=== PATIENT | male | born 1965 | race Caucasian/White ===

== ENCOUNTER 2020-03-17 08:33 | Observation (INO) ==
[2020-03-17] MEDS ORDERED: HYDROCODONE/ACETAMOPHEN 5/325MG TAB PO STA (09:02)
--- NOTE | 2020-03-17 09:37 | XRay Report ---
XR chest 1V portable CLINICAL HISTORY: Chest pain status post trauma COMPARISON STUDY: 11/23/2019 FINDINGS: The heart is the upper limits of normal in size. There is no failure. There is no focal pul monary consolidation. There are no pleural effusions. There is no pneumothorax. Slight interstitial p rominence likely relates to technical factors.[ IMPRESSION: No active disease in the chest. ACT 112: Negative or not required by law. Electronically signed by: Charli Dailey M.D. 03/17/2020 9:36 AM
--- NOTE | 2020-03-17 09:38 | XRay Report ---
XR knee RT 1 or 2V routine CLINICAL HISTORY: Extremity trauma. COMPARISON: None. FINDINGS: Note is made of an acute oblique mildly displaced fracture of the proximal diaphysis of th e right fibula. No proximal right tibial fracture is identified. Evaluation of the right knee is subo ptimal on this examination given lack of lateral view. Patella juanpablo is suspected. IMPRESSION: 1. Acute oblique mildly displaced fracture of the proximal diaphysis of the right fibula. 2. Suboptimal evaluation of the right knee given lack of lateral projection. Suspected patella juanpablo. This finding is age indeterminate and injury to the patellar tendon cannot be excluded. ACT 112: Negative or not required by law. Electronically signed by: Brady Terrell M.D. 03/17/2020 9:37 AM
--- NOTE | 2020-03-17 09:39 | XRay Report ---
XR ankle RT 2V CLINICAL HISTORY: Right ankle pain status post trauma COMPARISON: None DISCUSSION: There is a nondisplaced longitudinal fracture through the posterior malleolus of the dist al tibia. Degenerative changes are present within the tibiotalar joint. There is a plantar calcaneal spur. There is a tiny corticated ossicle adjacent Malleolar tip. This is felt to be old. The ankle mortise appears intact on these nonstress views.. IMPRESSION: 1. Acute fracture involving the posterior malleolus. ACT 112: Negative or not required by law. Electronically signed by: Charli Dailey M.D. 03/17/2020 9:38 AM
--- NOTE | 2020-03-17 09:44 | XRay Report ---
XR tibia fibula RT 2V CLINICAL HISTORY: Extremity trauma. COMPARISON: None FINDINGS: There may be slight medial ankle mortise widening. Note is made of an acute nondisplaced f racture of the posterior distal right tibia. In addition, there is an acute oblique mildly displaced fracture of the proximal diaphysis of the right fibula. IMPRESSION: 1. Acute nondisplaced fracture of the posterior distal right tibia. Acute oblique mildly displaced fr acture of the proximal diaphysis of the right fibula. 2. Possible slight medial ankle mortise widening. Underlying ligamentous injury cannot be excluded. ACT 112: Negative or not required by law. Electronically signed by: Brady Terrell M.D. 03/17/2020 9:42 AM
[2020-03-17] MEDS ORDERED: HYDROmorphone INJ 0.5 MG/0.5 ML SYR IV STA ×2 (10:18→11:25)
[2020-03-17] MEDS ORDERED: ONDANSETRON INJ 2 MG/ML 2 ML VIAL IV STA (10:18)
[2020-03-17] MEDS ORDERED: SODIUM CHLORIDE 0.9% 1000ML 1,000 ML IV SCH ×2 (10:30→21:00)
[2020-03-17 10:32] LABS: Basophils # (auto) 0.03 K/uL (0-0.2); Basophils % (auto) 0.3 %; Eosinophils # (auto) 0.33 K/uL (0-0.5); Eosinophils % (auto) 3.8 %; Hematocrit (blood only) 49.2 % (42-52); Immature Granulocytes # (auto) 0.02 K/uL (0.00-0.02); Immature Granulocytes % (auto) 0.2 %; Lymphocytes # (auto) 1.71 K/uL (1.2-3.4); Lymphocytes % (auto) 19.7 %; Mean Corpuscular Hemoglobin 31.3 pg (25-34); Mean Corpuscular Hgb Conc 34.6 g/dL (32-36); Mean Corpuscular Volume 90.6 fL (80-100); Mean Platelet Volume 10.8 fL (7.4-10.4); Monocytes # (auto) 0.75 K/uL (0.11-0.59); Monocytes % (auto) 8.7 %; Neutrophils # (auto) 5.83 K/uL (1.4-6.5); Neutrophils % (auto) 67.3 %; Platelet Count 202 K/uL (130-400); RDW Coefficient of Variation 12.6 % (11.5-14.5); RDW Standard Deviation 41.6 fL (36.4-46.3); Red Blood Count 5.43 M/uL (4.7-6.1); White Blood Count 8.67 K/uL (4.8-10.8)
[2020-03-17 10:51] LABS: Alanine Aminotransferase 70 U/L (12-78); Albumin Level 4.5 gm/dl (3.4-5.0); Aspartate Aminotransferase 28 U/L (15-37); BUN Creatinine Ratio 18.2 (10-20); Blood Urea Nitrogen 21 mg/dl (7-18); Calcium 9.1 mg/dl (8.5-10.1); Carbon Dioxide 31 mmol/L (21-32); Chloride 107 mmol/L (98-107); Est GFR (African American) 84.6; Glucose 154 mg/dl (70-99); Potassium 4.7 mmol/L (3.5-5.1); Sodium 141 mmol/L (136-145)
[2020-03-17 10:53] LABS: Albumin Globulin Ratio 1.4 (0.9-2); Alkaline Phosphatase 70 U/L (45-117); Bilirubin,Total 0.5 mg/dl (0.2-1); Globulin 3.2 gm/dl (2.5-4.0); Total Protein 7.7 gm/dl (6.4-8.2)
[2020-03-17 11:42] LABS: Influenza A virus by PCR Negative (Neg); Influenza B virus by PCR Negative (Neg); RSV by PCR Negative (Neg); SARS CoV2 RNA(COVID-19) InHosp NEGATIVE (Negative)
--- NOTE | 2020-03-17 13:03 | Magnetic Resonance Report ---
MR knee RT wo con CLINICAL HISTORY: Right knee pain status post trauma. Possible patellar tendon rupture. COMPARISON STUDY: X-ray study dated 03/17/2020 TECHNIQUE: MRI of the right knee was performed utilizing proton density T1, and T2 weighted sequences in the axial, sagittal, and coronal planes FINDINGS: Menisci: There is a vertical tear through the posterior horn of the medial meniscus. No tears of the lateral meniscus are visualized. Ligaments: The anterior and posterior cruciate ligaments are intact. The medial and lateral collatera l ligaments are normal in appearance. Extensor mechanism: There is a complete tear of the infrapatellar tendon. The tendon is retracted wit h 2 cm the tendon margins. There is also disruption of the lateral patellar retinaculum. Articular cartilage and bone: There is chondromalacia patella. Joint effusion: None. Soft tissues: There is moderate subcutaneous anterior edema. IMPRESSION: 1. Complete tear of the infrapatellar tendon with 2 cm of tendon separation 2. Tear of the posterior horn the medial meniscus 3. Chondromalacia patella ACT 112: Negative or not required by law. Electronically signed by: Charli Dailey M.D. 03/17/2020 1:01 PM
--- NOTE | 2020-03-17 13:05 | Electrocardiogram Report ---
Test Reason : Blood Pressure : / mmHG Vent. Rate : 057 BPM Atrial Rate : 057 BPM P-R Int : 176 ms QRS Dur : 094 ms QT Int : 396 ms P-R-T Axes : 036 -11 020 degrees QTc Int : 385 ms Sinus bradycardia Cannot rule out Anterior infarct , age undetermined Abnormal ECG When compared with ECG of 23-NOV-2009 06:35, No significant change was found Confirmed by Elvin Marie ([id number]) on 03/17/2020 1:05:24 PM Referred By: REFERRED SELF Confirmed By:Elvin Marie
--- NOTE | 2020-03-17 14:25 | Emergency Department Note ---
Impression & Plan Patellar tendon rupture, Fracture of proximal end of fibula, Closed fracture of posterior malleolus ED Provider Note NAME: PANCHO LOZANO AGE: 54 SEX: M ARRIVES VIA: Walk-In INFORMANT: Patient ED PROVIDER(S): Marybeth Craig MD CHIEF COMPLAINT: Right knee pain after fall PLAN: Disposition: inpatient Condition: stable Referral: Ortho MEDICAL DECISION MAKING:This pt was evaluated and appeared to be in some discomfort. Pt initially declined "heavy" pain meds and was given po norco. XR of the R knee, R tib fib and ankle reveal a high riding patella, proximal fibular fx and post malleolar fx. Pt has a patellar tendon rupture on exam. His pain increased during his stay. IV access was obtained and lab work was drawn. Pt was medicated with IV dilaudid, zofran. Case was discussed with Dr. Ho and subsequently Dr. Goode who agreed to evaluate the pt for admission and further management. Triage Nursing notes reviewed. Prior medical records reviewed Vital Signs: reviewed and remarkable for no significant abnormalities Differential diagnosis: Fracture, subluxation, dislocation, contusion, ligamentous injury, neurovascular, compartment syndrome, rhabdomyolysis, as well as other pathologies. ER treatment provided: po norco IV dilaudid IV zofran knee immobilizer posterior/sugartong splint foot/ankle Diagnostics interpreted by me: ECG: sinus bradycardia at 57 bpm, normal ST segments, no PVC, no PAC. QTc 385 Laboratory studies: See below Imaging studies: XR ankle RT 2V CLINICAL HISTORY: Right ankle pain status post trauma COMPARISON: None DISCUSSION: There is a nondisplaced longitudinal fracture through the posterior malleolus of the distal tibia. Degenerative changes are present within the tibiotalar joint. There is a plantar calcaneal spur. There is a tiny corticated ossicle adjacent Malleolar tip. This is felt to be old. The ankle mortise appears intact on these nonstress views.. IMPRESSION: 1. Acute fracture involving the posterior malleolus. ACT 112: Negative or not required by law. Electronically signed by: Charli Dailey M.D. 03/17/2020 9:38 AM Dictated: 03/17/20935Transcribed: 03/17/20935 ADDENDUM Addendum: Although technically indeterminate, apparent patella juanpablo is probably positional or chronic. Electronically signed by: Brady Terrell M.D. 03/17/2020 9:43 AM ADDENDUM END XR knee RT 1 or 2V routine CLINICAL HISTORY: Extremity trauma. COMPARISON: None. FINDINGS: Note is made of an acute oblique mildly displaced fracture of the proximal diaphysis of the right fibula. No proximal right tibial fracture is identified. Evaluation of the right knee is suboptimal on this examination given lack of lateral view. Patella juanpablo is suspected. IMPRESSION: 1. Acute oblique mildly displaced fracture of the proximal diaphysis of the right fibula. 2. Suboptimal evaluation of the right knee given lack of lateral projection. Suspected patella juanpablo. This finding is age indeterminate and injury to the patellar tendon cannot be excluded. ACT 112: Negative or not required by law. Electronically signed by: Brady Terrell M.D. 03/17/2020 9:37 AM Dictated: 03/17/2034Transcribed: 03/17/20933 XR tibia fibula RT 2V CLINICAL HISTORY: Extremity trauma. COMPARISON: None FINDINGS: There may be slight medial ankle mortise widening. Note is made of an acute nondisplaced fracture of the posterior distal right tibia. In addition, there is an acute oblique mildly displaced fracture of the proximal diaphysis of the right fibula. IMPRESSION: 1. Acute nondisplaced fracture of the posterior distal right tibia. Acute oblique mildly displaced fracture of the proximal diaphysis of the right fibula. 2. Possible slight medial ankle mortise widening. Underlying ligamentous injury cannot be excluded. ACT 112: Negative or not required by law. Electronically signed by: Brady Terrell M.D. 03/17/2020 9:42 AM Dictated: 03/17/2039Transcribed: 03/17/2039 XR chest 1V portable CLINICAL HISTORY: Chest pain status post trauma COMPARISON STUDY: 11/23/2019 FINDINGS: The heart is the upper limits of normal in size. There is no failure. There is no focal pulmonary consolidation. There are no pleural effusions. There is no pneumothorax. Slight interstitial prominence likely relates to technical factors.[ IMPRESSION: No active disease in the chest. ACT 112: Negative or not required by law. Electronically signed by: Charli Dailey M.D. 03/17/2020 9:36 AM Dictated: 03/17/20935Transcribed: 03/17/20935 Consultation(s): Ortho HPI: 54/M arrives for evaluation of R knee pain after a fall on the ice. Pt states he was taking the garbage out when he slipped, landing on his R>L knees. His R leg went behind him, with his foot hitting his buttocks. He immediately felt pain in the knee. Pt denies CHI, neck pain, CP, SOB, abd pain. He yelled, crawled to house until his saw him. He denies recent illness and known COVID exposure. ROS: See above HPI for pertinent positives & negatives. A total of 10 systems reviewed and were otherwise negative. PAST MEDICAL HISTORY:See Below PAST SURGICAL HISTORY:See Below FAMILY HISTORY:See Below SOCIAL HISTORY:See Below HOME MEDICATIONS:See Below ALLERGIES:See Below VITALS:See Below PHYSICAL EXAMINATION: Vital signs reviewed. General: Well-appearing 54 yo male, in discomfort. HEENT: No scleral icterus, PERRLA, neck supple. Atraumatic. Cardiovascular: Regular rate and rhythm, no extra sounds. Pulmonary: Clear to auscultation bilaterally, normal work of breathing. Abdomen: Soft, obese, nontender, nondistended, positive bowel sounds. Musculoskeletal: Atraumatic, no peripheral edema. R knee with patellar tendon defect, + swelling. pain with any ROM and inability to extend leg when quads are isolated. NVI distally. No significant swelling, pain at foot/ankle. Neurologic: Patient awake alert and oriented x 3 Skin: Warm, dry, abrasions at bilateral knees. Marybeth Craig MD Past Med/Surg History Medical History Elevated cholesterol GERD (gastroesophageal reflux disease) Social History Smoking Status: Never smoker Hx Alcohol Use: Yes Alcohol type: beer Hx Substance Use: No Preferred Language: Danish Communication Ability: Effective Beliefs That Will Affect Care: None Current Living Situation: Spouse Feels Safe at Home: Yes Assistive Devices: Brace/Splint/Immobilizer, Glasses and Walker Allergies Allergies Allergy/AdvReac Type Severity Reaction Status Date / Time No Known Allergies Allergy Unknown ` Verified 03/17/20 09:37 Home Meds Home Medications Medication Instructions Recorded Confirmed rosuvastatin 10 mg tablet 10 mg PO DAILY 12/16/18 03/17/20 omeprazole 20 mg PO BID 03/17/20 03/17/20 Previous Rx's Medication Instructions Recorded ondansetron HCl [Zofran] 4 mg PO DAILY PRN #10 tab 03/19/20 oxycodone 5 - 10 mg PO Q4H PRN #30 tab 03/19/20 Results & Data (ED) Vital Signs Vital Signs - 24 hr 03/17/20 08:34 03/17/20 10:30 03/17/20 13:57 Temperature 36.0 C L Temperature Source Temporal Artery Scan Pulse Rate 74 Pulse Rate [Right Finger] 85 88 Respiratory Rate 20 18 16 Blood Pressure 154/91 H Blood Pressure [Right Arm] 144/74 H 120/83 Blood Pressure Mean 112 Blood Pressure Mean [Right Arm] 97 95 Pulse Oximetry 98 96 97 Oxygen Delivery Method Room Air Room Air Room Air Sepsis Recent Fever Within 48 Hours No Sepsis New/Unexplained Change in Mental Status No Sepsis Action Taken by Nursing No Action Required Home Medications Current Medication List: was personally reviewed by me Laboratory Data Attestation: I reviewed the patient's lab results. Result diagrams: 03/17/20 10:15 03/17/20 10:15 Lab Results 03/17/20 03/17/20 03/17/20 Range/Units 10:15 10:15 10:50 WBC 8.67 (4.8-10.8) K/uL RBC 5.43 (4.7-6.1) M/uL Hgb 17.0 (14.0-18.0) g/dL Hct 49.2 (42-52) % MCV 90.6 (80-100) fL MCH 31.3 (25-34) pg MCHC 34.6 (32-36) g/dL RDW Std Deviation 41.6 (36.4-46.3) fL RDW Coeff of Jyoti 12.6 (11.5-14.5) % Plt Count 202 (130-400) K/uL MPV 10.8 H (7.4-10.4) fL Immature Gran % (Auto) 0.2 % Neut % (Auto) 67.3 % Lymph % (Auto) 19.7 % [place] % (Auto) 8.7 % Eos % (Auto) 3.8 % Baso % (Auto) 0.3 % Neut # (Auto) 5.83 (1.4-6.5) K/uL Lymph # (Auto) 1.71 (1.2-3.4) K/uL [place] # (Auto) 0.75 H (0.11-0.59) K/uL Eos # (Auto) 0.33 (0-0.5) K/uL Baso # (Auto) 0.03 (0-0.2) K/uL Immature Gran # (Auto) 0.02 (0.00-0.02) K/uL Sodium 141 (136-145) mmol/L Potassium 4.7 (3.5-5.1) mmol/L Chloride 107 (98-107) mmol/L Carbon Dioxide 31 (21-32) mmol/L Anion Gap 3.0 (3-11) BUN 21 H (7-18) mg/dl Creatinine 1.14 (0.6-1.4) mg/dl Est Cr Clr Drug Dosing Not Reportable Est GFR ( Amer) 84.6 Est GFR (Non-Af Amer) 73.0 BUN/Creatinine Ratio 18.2 (10-20) Glucose 154 H (70-99) mg/dl Calcium 9.1 (8.5-10.1) mg/dl Total Bilirubin 0.5 (0.2-1) mg/dl AST 28 (15-37) U/L ALT 70 (12-78) U/L Alkaline Phosphatase 70 (45-117) U/L Total Protein 7.7 (6.4-8.2) gm/dl Albumin 4.5 (3.4-5.0) gm/dl Globulin 3.2 (2.5-4.0) gm/dl Albumin/Globulin Ratio 1.4 (0.9-2) Specimen Hemolysis COVID-19 Eval Order CovFluRsv at [facility] SARS-CoV-2 (PCR) (Negative) Influenza Type A (PCR) (Neg) Influenza Type B (PCR) (Neg) RSV (RT-PCR) (Neg) 03/17/20 Range/Units 10:50 WBC (4.8-10.8) K/uL RBC (4.7-6.1) M/uL Hgb (14.0-18.0) g/dL Hct (42-52) % MCV (80-100) fL MCH (25-34) pg MCHC (32-36) g/dL RDW Std Deviation (36.4-46.3) fL RDW Coeff of Jyoti (11.5-14.5) % Plt Count (130-400) K/uL MPV (7.4-10.4) fL Immature Gran % (Auto) % Neut % (Auto) % Lymph % (Auto) % [place] % (Auto) % Eos % (Auto) % Baso % (Auto) % Neut # (Auto) (1.4-6.5) K/uL Lymph # (Auto) (1.2-3.4) K/uL [place] # (Auto) (0.11-0.59) K/uL Eos # (Auto) (0-0.5) K/uL Baso # (Auto) (0-0.2) K/uL Immature Gran # (Auto) (0.00-0.02) K/uL Sodium (136-145) mmol/L Potassium (3.5-5.1) mmol/L Chloride (98-107) mmol/L Carbon Dioxide (21-32) mmol/L Anion Gap (3-11) BUN (7-18) mg/dl Creatinine (0.6-1.4) mg/dl Est Cr Clr Drug Dosing Est GFR ( Amer) Est GFR (Non-Af Amer) BUN/Creatinine Ratio (10-20) Glucose (70-99) mg/dl Calcium (8.5-10.1) mg/dl Total Bilirubin (0.2-1) mg/dl AST (15-37) U/L ALT (12-78) U/L Alkaline Phosphatase (45-117) U/L Total Protein (6.4-8.2) gm/dl Albumin (3.4-5.0) gm/dl Globulin (2.5-4.0) gm/dl Albumin/Globulin Ratio (0.9-2) Specimen Hemolysis COVID-19 Eval Order SARS-CoV-2 (PCR) NEGATIVE (Negative) Influenza Type A (PCR) Negative (Neg) Influenza Type B (PCR) Negative (Neg) RSV (RT-PCR) Negative (Neg) Administered Medications Discontinued Medications Acetaminophen (Acetaminophen 325 Mg Tab) 650 mg PO Q6H PRN PRN Reason: Fever or Headache Stop: 04/16/20 15:04 Last Admin: 03/19/20 10:26 Dose: 650 mg Documented by: [id number] Admin: 03/19/20 04:26 Dose: 650 mg Documented by: [id number] Hydrocodone Bitart/Acetaminophen (Hydrocodone/Acetamophen 5/325mg Tab) 1 tab PO NOW STA Stop: 03/17/20 09:03 Last Admin: 03/17/20 09:10 Dose: 1 tab Documented by: [id number] Aspirin (Aspirin 325 Mg Ectab) 325 mg PO BID REPLACED BY [facility] Stop: 04/17/20 20:59 Last Admin: 03/19/20 08:32 Dose: 325 mg Documented by: [id number] Admin: 03/18/20 21:04 Dose: 325 mg Documented by: [id number] Fentanyl Citrate (Fentanyl Citrate 100 Mcg/2 Ml Vial) 50 mcg IV Q5M PRN PRN Reason: PACU Use Only-Pain Stop: 03/18/20 20:01 Last Admin: 03/18/20 16:41 Dose: 50 mcg Documented by: [id number] Admin: 03/18/20 16:36 Dose: 50 mcg Documented by: [id number] Hydromorphone HCl (Hydromorphone Inj 0.5 Mg/0.5 Ml Syr) 0.5 mg IV NOW STA Stop: 03/17/20 10:19 Last Admin: 03/17/20 10:25 Dose: 0.5 mg Documented by: [id number] Hydromorphone HCl (Hydromorphone Inj 0.5 Mg/0.5 Ml Syr) 0.5 mg IV NOW STA Stop: 03/17/20 11:26 Last Admin: 03/17/20 11:46 Dose: 0.5 mg Documented by: [id number] Sodium Chloride (Nss 1000ml) 1,000 mls @ 125 mls/hr IV .Q8H [facility] Stop: 04/16/20 10:29 Last Infusion: 03/17/20 15:57 Dose: 0 mls/hr Documented by: [id number] Admin: 03/17/20 10:26 Dose: 125 mls/hr Documented by: [id number] Cefazolin Sodium (Ancef 2000mg) 2,000 mg in 15 mls @ 3.75 mls/min IV PREOP CARL[facility]; Protocol Stop: 03/19/20 05:59 Last Admin: 03/18/20 12:52 Dose: 3.75 mls/min Documented by: [id number] Sodium Chloride (Nss 1000ml) 1,000 mls @ 80 mls/hr IV .[id number] CARLITOS Stop: 04/17/20 07:29 Last Infusion: 03/19/20 14:11 Dose: 0 mls/hr Documented by: [id number] Admin: 03/19/20 01:59 Dose: 80 mls/hr Documented by: [id number] Admin: 03/18/20 21:55 Dose: Not Given Documented by: [id number] Infusion: 03/18/20 20:13 Dose: 80 mls/hr Documented by: [id number] Admin: 03/18/20 07:43 Dose: 80 mls/hr Documented by: [id number] Cefazolin Sodium (Ancef 1000mg) 1,000 mg in 7.5 mls @ 2.5 mls/min IV ONCE ONE Stop: 03/18/20 14:48 Last Admin: 03/18/20 13:10 Dose: 2.5 mls/min Documented by: [id number] Cefazolin Sodium (Ancef 2000mg) 2,000 mg in 15 mls @ 3.75 mls/min IV TODAY@2200 [facility] Stop: 03/18/20 22:03 Last Admin: 03/18/20 21:06 Dose: 3.75 mls/min Documented by: [id number] Morphine Sulfate (Morphine Sulfate 2 Mg/Ml Carp) 2 mg IV Q3H PRN PRN Reason: Pain Stop: 03/31/20 15:54 Last Admin: 03/19/20 08:36 Dose: 2 mg Documented by: [id number] Admin: 03/19/20 05:25 Dose: 2 mg Documented by: [id number] Admin: 03/19/20 02:01 Dose: 2 mg Documented by: [id number] Admin: 03/18/20 20:26 Dose: 2 mg Documented by: [id number] Admin: 03/17/20 19:52 Dose: 2 mg Documented by: [id number] Ondansetron HCl (Ondansetron Inj 2 Mg/Ml 2 Ml Vial) 4 mg IV NOW STA Stop: 03/17/20 10:19 Last Admin: 03/17/20 10:26 Dose: 4 mg Documented by: [id number] Ondansetron HCl (Ondansetron Inj 2 Mg/Ml 2 Ml Vial) 4 mg IV Q6H PRN PRN Reason: Nausea/Vomiting Stop: 04/16/20 15:04 Last Admin: 03/19/20 04:34 Dose: 4 mg Documented by: [id number] Oxycodone HCl (Oxycodone Hcl Ir 5 Mg Tab (Immediate Release)) 5 - 10 mg PO Q6H PRN PRN Reason: Pain Stop: 03/31/20 15:49 Last Admin: 03/19/20 10:26 Dose: 10 mg Documented by: [id number] Admin: 03/19/20 04:19 Dose: 10 mg Documented by: [id number] Admin: 03/18/20 22:20 Dose: 10 mg Documented by: [id number] Admin: 03/17/20 16:37 Dose: 10 mg Documented by: [id number] Pantoprazole Sodium (Pantoprazole 40 Mg Tab) 40 mg PO BID [facility] Stop: 04/16/20 20:59 Last Admin: 03/19/20 08:33 Dose: 40 mg Documented by: [id number] Admin: 03/18/20 20:32 Dose: 40 mg Documented by: [id number] Admin: 03/18/20 07:49 Dose: 40 mg Documented by: [id number] Admin: 03/17/20 19:56 Dose: 40 mg Documented by: [id number] Rosuvastatin Calcium (Rosuvastatin Calcium 10 Mg Tab) 10 mg PO DAILY REPLACED BY [facility] Stop: 04/17/20 08:59 Last Admin: 03/19/20 08:33 Dose: 10 mg Documented by: [id number] Admin: 03/18/20 07:49 Dose: 10 mg Documented by: [id number] Discharge Plan Visit Data Chief Complaint: Leg Injury/Pain Stated Complaint: R LEG PAIN POSS BROKE FALL ED Provider: Marybeth Craig Discharge Problem: Patellar tendon rupture, Fracture of proximal end of fibula, Closed fracture of posterior malleolus Patient Disposition: Admitted As Inpatient Condition: Good Discharge Instructions Interventions: ED Discharge Assessment Last Done: 03/17/20 14:32 Discharge Problem: Patellar tendon rupture Qualifiers: Encounter type: initial encounter Laterality: right Qualified Code(s): S86.811A - Strain of other muscle(s) and tendon(s) at lower leg level, right leg, initial encounter Fracture of proximal end of fibula Qualifiers: Encounter type: initial encounter Fracture type: closed Fracture morphology: unspecified fracture morphology Laterality: right Qualified Code(s): S82.831A - Other fracture of upper and lower end of right fibula, initial encounter for closed fracture Closed fracture of posterior malleolus Qualifiers: Encounter type: initial encounter Laterality: right Qualified Code(s): S82.391A - Other fracture of lower end of right tibia, initial encounter for closed fracture
[2020-03-17] MEDS ORDERED: ONDANSETRON INJ 2 MG/ML 2 ML VIAL IV PRN (15:05)
--- NOTE | 2020-03-17 15:50 | History & Physical Report ---
Date of Service March 17, 2020 Assessment & Plan (1) Patellar tendon rupture: He was seen and examined by Dr. Goode today as well. We did recommend surgical fixation/repair of his knee and ankle. Procedure was explained to him including risk, benefits of surgery. Consent obtained. He was admitted and will be npo after midnight. We will plan on doing a patella tendon repair, and ORIF of the right ankle tomorrow. He has been placed in a knee immobilizer and a splint for the ankle. He should elevate this leg and place ice on his ankle and knee. He will likely need hardware removal of the ankle in approx 3 months and this was discussed with him today as well. (2) Fracture of proximal end of fibula: (3) Closed fracture of posterior malleolus: History of Present Illness Chief Complaint: . Right knee and ankle pain Primary Care Provider: Geovanni Tolentino MD . 54 y/o gentleman here with an injury to his right knee and ankle. He was taking out his garbage cans today, slipped and fell on the ice, landing on his leg sort of hyperflexed at the knee. He was unable to get up and walk. His brought him to [facility]. He denies any other injuries at this time. Allergies Allergy/AdvReac Type Severity Reaction Status Date / Time No Known Allergies Allergy Unknown ` Verified 03/17/20 09:37 Home Medications Medication Instructions Recorded Confirmed Type rosuvastatin 10 mg tablet 10 mg PO DAILY 12/16/18 03/17/20 History omeprazole 20 mg PO BID 03/17/20 03/17/20 History Past Med/Surg History Medical History (Updated 03/17/20 @ 15:38 by Jerry Young PA-C) Elevated cholesterol GERD (gastroesophageal reflux disease) Social History Smoking Status: Never smoker Hx Alcohol Use: Yes Alcohol type: beer Hx Substance Use: No Preferred Language: Hong Konger Communication Ability: Effective Beliefs That Will Affect Care: None Current Living Situation: Spouse Other Information That Helps Us Care for You: No Feels Safe at Home: Yes Assistive Devices: CPAP and Glasses Review of Systems All systems reviewed & are unremarkable except as noted in HPI & below. Physical Exam . Constitutional + obese; no acute distress Respiratory normal respiratory effort Cardiovascular Vessels: normal peripheral pulses Extremities: normal capillary refill Musculoskeletal Right leg: No deformity. Obvious swelling of the ankle medially, and of his knee. He has a defect in the patella tendon. Unable to do straight leg raise. Tender at his patella tendon. Tender at the proximal fibula and medial aspect of the ankle. He can move his toes appropriately. Skin Skin intact at knee and ankle Neurologic normal touch/pain/proprioception Psychiatric Orientation: alert and oriented x 3 Results & Data Results & Data Laboratory Results . Diagnostic Findings . xrays show proximal fibula fracture and widening of the medial mortise of the ankle, posterior malleolus fracture/ maisonneuve fracture MRI shows patella tendon rupture PG Care Time/CCT Total # of Minutes Spent Total Time Spent with Patient: Total time spent is greater than 50% in coordination of care (as documented) at patient's floor/unit and/or counseling patient: Coding Level of Care Code 41059 Initial Inpt Care Lvl 2 Diagnoses Patellar tendon rupture S86.811A Encounter type: initial encounter Laterality: right Fracture of proximal end of fibula S82.831A Encounter type: initial encounter Fracture morphology: unspecified fracture morphology Fracture type: closed Laterality: right Closed fracture of posterior malleolus S82.391A Encounter type: initial encounter Laterality: right (1) Patellar tendon rupture Encounter type: initial encounter Laterality: right Qualified Code(s): S86.811A - Strain of other muscle(s) and tendon(s) at lower leg level, right leg, initial encounter (2) Fracture of proximal end of fibula Encounter type: initial encounter Fracture morphology: unspecified fracture morphology Fracture type: closed Laterality: right Qualified Code(s): S82.831A - Other fracture of upper and lower end of right fibula, initial encounter for closed fracture (3) Closed fracture of posterior malleolus Encounter type: initial encounter Laterality: right Qualified Code(s): S82.391A - Other fracture of lower end of right tibia, initial encounter for closed fracture
[2020-03-17] MEDS: oxyCODONE HCL IR 5 MG TAB (IMMEDIATE RELEASE) PO PRN (16:37)
[2020-03-17] MEDS: MoRPHine SULFATE 2 MG/ML CARP IV PRN (19:52)
[2020-03-17] MEDS: PANTOprazole 40 MG TAB PO SCH (19:56)
[2020-03-18] MEDS ORDERED: ceFAZolin 2000MG 2,000 MG/15 ML SYR IV SCH ×2 (06:00→22:00)
--- NOTE | 2020-03-18 07:41 | History & Physical Bridge Note ---
Date of Service March 18, 2020 History & Physical Bridge Note I have examined the patient, reviewed the History & Physical and in the interval since the performance of the History & Physical I have noted the following changes of clinical significance: no changes noted
[2020-03-18] MEDS: SODIUM CHLORIDE 0.9% 1000ML 1,000 ML IV SCH ×2 (07:43→21:55)
[2020-03-18] MEDS: PANTOprazole 40 MG TAB PO SCH ×2 (07:49→20:32)
[2020-03-18] MEDS: ROSUVASTATIN CALCIUM 10 MG TAB PO SCH (07:49)
--- NOTE | 2020-03-18 08:58 | Progress Notes ---
DATE: 03/18/2020 SUBJECTIVE: A 54-year-old gentleman admitted yesterday with a right Maisonneuve ankle fracture and a patellar tendon rupture. There has been no interval change in his situation. His pain is about the same. No new complaints. No chest pain or shortness of breath. Not feeling dizzy or lightheaded. Isolated knee and ankle pain and knee is worse than the ankle. OBJECTIVE: VITAL SIGNS: Temperature 36.2. Vital signs stable. GENERAL: Shows a pleasant, middle-aged male. He is sitting up in bed this morning and looks reasonably comfortable. His brace is on and his ankle is splinted. He can dorsiflex and plantarflex his toes appropriately. He is neurologically intact. ASSESSMENT: A 54-year-old gentleman with: 1. Right patellar tendon rupture. 2. Right Maisonneuve ankle fracture. PLAN: He is n.p.o. for now. We are going to take him to the operating room later today and do a syndesmosis screw fixation of the ankle and patellar tendon repair. The risks and benefits of this procedure were once again reviewed. He understands and desires to proceed. We will plan DVT prophylaxis including thigh-high TEDs, SCDs, and aspirin twice a day. We will keep him overnight for a therapy session probably the following morning.
[2020-03-18] MEDS ORDERED: LIDOCAINE HCL 2% 2 ML VIAL/AMP(20MG/ML) INFIL ONE ×2 (11:39→14:01)
[2020-03-18] MEDS ORDERED: ROCURONIUM BROMIDE 10 MG/ML 5 ML VIAL IV ONE (11:39)
[2020-03-18] MEDS ORDERED: ONDANSETRON INJ 2 MG/ML 2 ML VIAL ONE (11:39)
[2020-03-18] MEDS ORDERED: DEXAMETHASONE SOD INJ 4 MG/ML VIAL ONE ×3 (11:39→13:41)
[2020-03-18] MEDS ORDERED: LARYING-O-JET KIT (LTA) ONE (11:39)
[2020-03-18] MEDS ORDERED: NEOSTIGMINE METHYLSULFATE 5 MG/5 ML SYR ONE (11:39)
[2020-03-18] MEDS ORDERED: GLYCOPYRROLATE 0.2 MG/ML VIAL ONE (11:39)
[2020-03-18] MEDS ORDERED: PROPOFOL IV EMULSION 10 MG/ML 20 ML VIAL IV ONE (11:39)
[2020-03-18] MEDS ORDERED: fentaNYL citrate 100 MCG/2 ML VIAL ONE ×2 (11:40→15:07)
[2020-03-18] MEDS ORDERED: MIDAZOLAM HCL 1 MG/ML 2ML VIAL ONE (11:40)
[2020-03-18] MEDS ORDERED: ROPIVACAINE 0.5% 5 MG/ML 30 ML VIAL ONE (11:58)
[2020-03-18] MEDS ORDERED: ONDANSETRON INJ 2 MG/ML 2 ML VIAL IV PRN (12:01)
[2020-03-18] MEDS ORDERED: HYDROmorphone INJ 2 MG/ML SYR/VIAL IV PRN (12:01)
[2020-03-18] MEDS ORDERED: ePHEDrine sulfate 50 MG/ML AMP IV PRN (12:01)
[2020-03-18] MEDS ORDERED: PROMETHAZINE HCL 12.5 MG in SODIUM CHLORIDE 0.9% 50 ML IV PRN (12:01)
[2020-03-18] MEDS ORDERED: ATROPINE SULFATE 0.1 MG/ML 10ML SYR IV PRN (12:01)
--- NOTE | 2020-03-18 12:03 | Anesthesiology Consultation ---
Date of Service March 18, 2020 Assessment & Plan (1) Encounter for pre-operative examination: Chart Review Chart Review: Acceptable Risk for Surgery and Patient NOT seen in Pre Admission Testing Consults Requested none History Surgery Operation Date: 03/18/20 07:00 Proposed Procedures p Right Ankle Open Reduction Internal Fixation, - Al Powell MD s Patella Tendon Repair - Al Powell MD Height/Weight Height: 6 ft 3 in Weight: 153.1 kg Allergies Allergy/AdvReac Type Severity Reaction Status Date / Time No Known Allergies Allergy Unknown ` Verified 03/17/20 09:37 Medications Home Medications Medication Instructions Recorded Confirmed Last Taken rosuvastatin 10 mg tablet 10 mg PO DAILY 12/16/18 03/17/20 03/17/20 omeprazole 20 mg PO BID 03/17/20 03/17/20 03/17/20 Active Medications Generic Name Dose Route Start Last Admin Trade Name Freq PRN Reason Stop Dose Admin Sodium Chloride 1,000 mls @ 80 mls/hr 03/18/20 07:30 03/18/20 07:43 Nss 1000ml IV 04/17/20 07:29 80 mls/hr .[id number] CARLITOS Administration Morphine Sulfate 2 mg 03/17/20 15:55 03/17/20 19:52 Morphine Sulfate 2 Mg/Ml Carp IV 03/31/20 15:54 2 mg Q3H PRN Administration Pain Oxycodone HCl 5 - 10 mg 03/17/20 15:50 03/17/20 16:37 Oxycodone Hcl Ir 5 Mg Tab (Immediate Release) PO 03/31/20 15:49 10 mg Q6H PRN Administration Pain Pantoprazole Sodium 40 mg 03/17/20 21:00 03/18/20 07:49 Pantoprazole 40 Mg Tab PO 04/16/20 20:59 40 mg BID CARLITOS Administration Rosuvastatin Calcium 10 mg 03/18/20 09:00 03/18/20 07:49 Rosuvastatin Calcium 10 Mg Tab PO 04/17/20 08:59 10 mg DAILY CARLITOS Administration NPO Date Last Intake of Fluids: 03/17/20 Time Last Intake of Fluids: 17:00 Date Last Intake of Solids: 03/17/20 Time Last Intake of Solids: 17:00 Past Medical History Medical History Elevated cholesterol GERD (gastroesophageal reflux disease) Exercise / Class Metabolic Activity II 4-5 Yardwork/Stairs/Walk up hill Past Anesthesia History No Hx of Anesthesia Complications and No Family Hx of Anesthesia Complications History of PONV No Hx of PONV and No Hx of Motion Sickness Social History Smoking Status: Never smoker Hx Alcohol Use: Yes Alcohol type: beer alcohol intake frequency: holidays/special occasions only Hx Substance Use: No Physical Exam Vital Signs Last Vital Signs Temp 36.2 C L 03/18/20 07:08 Pulse 66 03/18/20 07:08 Resp 18 03/18/20 07:08 BP 125/75 03/18/20 07:08 Pulse Ox 95 03/18/20 07:08 Testing Laboratory Results 03/17/20 10:15 03/17/20 10:15 Blood Type O Positive 03/17/20 15:56 Antibody Screen NEGATIVE 03/17/20 15:56 Electrocardiogram Date: 03/17/20 Findings: + SB @ ant infarct, seen on prior ecg
--- NOTE | 2020-03-18 12:24 | History & Physical Bridge Note ---
Date of Service March 18, 2020 History & Physical Bridge Note I have examined the patient, reviewed the History & Physical and in the interval since the performance of the History & Physical I have noted the following changes of clinical significance: no changes noted. I separately evaluated Mr. Christopher and described the risks and benefits once again for Right patellar tendon open repair and right ankle open reduction and internal fixation. He wishes to proceed with myself as the surgeon.
[2020-03-18] MEDS ORDERED: LABETALOL HCL IV 5 MG/ML 20ML IV ONE ×2 (13:32→14:34)
[2020-03-18] MEDS ORDERED: ceFAZolin 1000MG 1,000 MG/7.5 ML SYR IV ONE (14:46)
--- NOTE | 2020-03-18 15:52 | Fluoroscopy Report ---
INTRAOPERATIVE RADIOGRAPHS CLINICAL HISTORY: Proximal fibula/patellar anchor. Fluoroscopy time: 3 seconds. FINDINGS: 2 spot fluoroscopic views of the right knee are correlated with radiographs dated 03/17/2020 . There is a mildly displaced fracture of the proximal fibula. An anchor transfixes the patella. IMPRESSION: Intraoperative images shown an anchor present in the patella. Electronically signed by: Blake Randle M.D. 03/18/2020 2:56 PM
--- NOTE | 2020-03-18 15:57 | Fluoroscopy Report ---
FL ankle RT 2V CLINICAL HISTORY: Fracture. COMPARISON STUDY: 03/17/2020 FLUOROSCOPY TIME: 7 seconds. NUMBER OF FLUOROSCOPIC IMAGES: 7 FINDINGS: There is a nondisplaced fracture of the posterior malleolus. Two threaded screws with washers were placed transversely through the distal tibiofibular syndesmosi s. There is a proximal fibular fracture. The distal fragment demonstrates one third shaft width anter ior displacement. There is 8 degrees of vertex lateral angulation the fracture site. There is equivoc al subtle widening of the anterior aspect of the tibiotalar joint space, as well as slight widening o f the medial aspect of the tibiotalar joint space as compared with the lateral aspect. IMPRESSION: Intraoperative radiographs as described above. ACT 112: Negative or not required by law. Electronically signed by: Charli Dailey M.D. 03/18/2020 3:56 PM
--- NOTE | 2020-03-18 16:03 | Post Operative Brief Note ---
PG Immediate Post Op with CF Date of Surgery March 18, 2020 Pre & Post Diagnosis Operation Date: 03/18/20 07:00 Pre-Op Diagnosis: RIGHT PATELLA TENDON RUPTURE, RIGHT ANKLE FRACTURE Post-Op Diagnosis: RIGHT PATELLA TENDON RUPTURE, RIGHT ANKLE FRACTURE I identified the patient and participated in the time-out.: Yes Procedure Operation Date: 03/18/20 07:00 Actual Procedures p Right Ankle Open Reduction Internal Fixation,(Right) - Al Powell MD s Patella Tendon Repair(Right) - Al Powell MD Surgeon Al Powell MD Boom Tender Enrico Diez PA-C Estimated Blood Loss 25 Findings Consistent with Post-Op Diagnosis
--- NOTE | 2020-03-18 16:17 | Operative Report ---
PG Post Operative Report Pre & Post Diagnosis Operation Date: 03/18/20 07:00 Pre-Op Diagnosis: RIGHT PATELLA TENDON RUPTURE, RIGHT ANKLE FRACTURE Post-Op Diagnosis: RIGHT PATELLA TENDON RUPTURE, RIGHT ANKLE FRACTURE I identified the patient and participated in the time-out.: Yes Procedure Operation Date: 03/18/20 07:00 Actual Procedures p Right Ankle Open Reduction Internal Fixation,(Right) - Al Powell MD s Patella Tendon Repair(Right) - Al Powell MD Surgeon Al Powell MD Circle Saw Operator Enrico Diez PA-C Estimated Blood Loss 25 Findings See Below The patellar tendon ruptured and is the like fashion with the majority of through the mid substance of the patellar tendon. There was degenerative tissue throughout. It was fixed with 2 fiber tape cores of running locking stitches w ith 4 tails capturing the distal portion of the tendon and running up through the remnant before passing through 3 bone tunnels and tied over the top. #2 Ethibond suture was used to repair the medial and lateral complete retinacular rupture as well as complete an epitendinous stitch over the top of the patella tendon repair. #1 Vicryl approximated the peritenon and prepatellar bursa over the repair for complete soft tissue coverage of our nonabsorbable suture. The ankle syndesmosis was reduced with minimal manipulation using the periarticular clamp before 2 separate 4.5 mm cortical screws were placed across 4 cortices with washers. Specimens None Anesthesia Type General Regional Complications none Disposition Accompanied Patient To Recovery: No Disposition: Recovery Room Indications 54-year-old male sustained a slip and fall last evening on the ice resulting in immediate pain and deformity. He was unable to extend his knee due to complete patellar rupture. He also had an unstable ankle. He was admitted to orthopedic service for preoperative work-up for right open patella tendon repair and ankle syndesmosis fixation. He was evaluated and consented for surgery by Dr. Goode before transitioning to myself. I did review once again the risks and benefits surgery in detail and reperformed the consent. He is agreeable to proceed. Description of Procedure On the day of surgery, the patient was greeted in the preoperative holding area. The informed consent was reviewed and confirmed by myself and the patient. The patient identified the surgical site and was marked by me. The patient was then turned over to anesthesia. Anesthesia performed a regional anesthetic block with excellent effect. Patient was then taken to the operating place upon the OR table and anesthesia was induced. The airway was secured. The ipsilateral hip was bumped using blankets. All bony prominences were well-padded. A nonsterile tourniquet was placed high in the thigh. The right lower extremity then prepped and draped in sterile fashion for patella tendon repair and ankle fixation. Surgical timeout was called by the motor builder assembler nurse verified by all present. Antibiotics been infused and equipment is available and functional. A midline incision over the patella was made to provide access to the patella and patellar tendon. We also exposed the proximal pole the patella. Medial lateral skin flaps were developed and Bovie electrocautery was used for hemostasis. The peritenon was excised over the patella and patellar tendon and the tendon stump was debrided. Once opening the ecchymotic peritenon, there was abundant clot that had to be debrided. There was disruption of the complete patella tendon through its mid substance and medial lateral retinacula back to the femur. After extensive debridement back to stable tissues. There was adequate tissue for direct patella tendon repair. I plan for 2 fiber tape suture cortisone running locking fashion for 4 tails the past 2 3 tunnels in the patella. We began by passing and running locking fashion from proximal to distal and back proximal with the fiber tape. The same procedure was done on the medial side of the distal stump. The 4 tails were then passed through the remnant on the inferior pole in a running fashion with many passes. This allowed reduction of the proximal tissue to the distal tissue. We then covered these suture tails with a towel. The patella was then exposed using a bump underneath the knee. A central drill pin was placed using a 2 mm drill from the superior pole to the inferior pole. Using the central axis, two additional tunnels were made using a 2 mm drill on the medial lateral side. The [place] suture passer was used from proximal to distal and then loaded with passing suture loop. This was used to shuttle the tails of the quadricep tendon whipstitch back through the tunnels. The central tunnel past the 2 medial tail as well as single tails past of the medial lateral tunnel. The knee was placed in full extension and the tendon was then reduced forcefully using the tension on the fiber tape tails. A firm knot was tied after passing the tails to the medial lateral aspect outside the patellar tendon distally. Firm knots were tied. We then thoroughly irrigated the soft tissues. # 2 FiberWire sutures was used on the medial and lateral retinacular repairs. The retinacular tears were complete but there was adequate tissue for and then repaired with multiple [id number] interrupted sutures. The peritenon was dissected and elevated was able to get a nice bursal/peritenon coverage over the top of the repair using a #1 Vicryl suture. Closure consisted of #1 Vicryl in the deep peritenon layer to cover the exposed tendon. Portions of the prepatellar bursa were then closed over the suture, where possible. 0 Vicryl suture was used in the deep subcuticular and fascial layers. The skin was approximated using 2-0 Vicryl. Final subcuticular closure was accomplished using babak. We then directed our attention to the ankle. The ankle syndesmosis was evaluated on fluoroscopy and the joint line was marked in the skin. A 4 cm incision was made over the midline of the fibula. The proximal fibular fracture was evaluated and seen to be out to length. The periarticular clamps were then placed on the fibula and on the medial malleolus using a small stab incision. Gentle traction was used on the fibula through the particular clamp to reduce it. The syndesmosis evaluated. The fibula was out the length and the syndesmosis was reduced. 3.2 drill bit was then passed through the fibula and into the tibia through 4 cortices under fluoroscopic guidance to be parallel to the joint. A second 3.2 mm drill bit was then drilled parallel 2 cm proximal in the same incision. We then swapped the drill bits for screws of measured length of 54 and 64 mm. The 4.5 mm Synthes were placed with washers. Final fluoroscopic images were taken of the proximal fibular fracture as well as ankle syndesmosis. I did perform a stress test the syndesmosis and the talus appear to be stable underneath the plafond. Thorough irrigation was then carried out of the ankle incisions. The ankle incisions were closed using 2-0 Vicryl suture in the deep dermal layer followed by babak. The medial stab incision for the peritracheal exam was also closed with babak. Total tourniquet time was 120 minutes at 200 mmHg. Tourniquet is let down prior to final closure of the ankle. The wounds were dressed with sterile Xeroform, sterile gauze, ABD, and web roll. Standard ankle splint was placed using Ortho-Glass, andh an Ron wrap was placed from toes to thigh. The limb was placed in a standard postoperative knee immobilizer locked in full extension. Patient tolerated seizure well, was extubated the operative without complication, and was transported to the PACU in stable condition. Disposition: Patient will remain in the knee immobilizer in full extension. He should be nonweightbearing on the right lower extremity until 2-week postop. At the 2-week postop, we will place him in a controlled active motion boot and attempt to place a knee range of motion brace with it. Initial stability of the patella tendon repair was to 60 degrees, but we will begin range of motion from 0-30 and advanced every 2 weeks x 30 degrees. He can begin weightbearing in a controlled active motion boot after the 2-week postop. He will be admitted for observation, postop pain management, and to be evaluated by PT and OT for discharge home. DVT prophylaxis will consist of oral aspirin 325 mg twice daily. Physician sales assistant institutional sales attestation: Enrico Diez PA-C was present and scrubbed for the duration of the case. He was essential to prepping/draping, patient positioning, retraction, and assistance with wound closure. He was essential to holding reduction. I attest to the content of the Intraoperative Record and any orders documented therein. Any exceptions are noted below.
[2020-03-18] MEDS: fentaNYL citrate 100 MCG/2 ML VIAL IV PRN ×2 (16:36→16:41)
--- NOTE | 2020-03-18 16:45 | XRay Report ---
XR knee RT 1 or 2V routine, XR tibia fibula RT 2V CLINICAL HISTORY: Post-op Right patellar tendon repair COMPARISON STUDY: Right knee and ankle 03/17/2020. FINDINGS: Anterior skin babak with soft tissue gas and edema anteriorly within the right knee consi stent with patellar tendon repair. Slightly displaced oblique fracture within the proximal fibular sh aft is again noted. Syndesmotic repair of the right ankle with 2 screws. The hardware appears intact. IMPRESSION: Postoperative changes within the right knee and right ankle as described above. Slightly displaced fracture within the proximal right fibular shaft is again noted. ACT 112: Negative or not required by law. Electronically signed by: Jules Lowery M.D. 03/18/2020 4:44 PM
--- NOTE | 2020-03-18 16:56 | Anesthesiology Progress Note ---
Date of Service March 18, 2020 Anesthesia Post Procedure Vital Signs Vital Signs: Temp Pulse Pulse Resp BP Pulse Ox 03/18/20 16:45 60 12 143/77 H 96 03/18/20 16:35 77 16 134/79 92 03/18/20 16:25 70 12 176/103 H 93 03/18/20 16:15 81 22 147/94 H 93 03/18/20 16:06 36.6 C 74 21 146/82 H 93 03/18/20 11:56 36.9 C 76 18 145/86 H 96 03/18/20 07:08 36.2 C L 66 18 125/75 95 03/17/20 22:41 36.9 C 58 L 16 132/79 96 Pain Intensity Right Leg: Pain Intensity: 5 Transfer of Care Handoff Completed per policy Notes Mental Status: alert / awake / arousable Patient Amnestic to Procedure: Yes Nausea / Vomiting: adequately controlled Pain: adequately controlled Airway Patency, RR, SpO2: stable & adequate BP & HR: stable & adequate Hydration State: stable & adequate Anesthetic Complications: no major complications apparent
[2020-03-18] MEDS: MoRPHine SULFATE 2 MG/ML CARP IV PRN (20:26)
[2020-03-18] MEDS: ASPIRIN 325 MG ECTAB PO SCH (21:04)
[2020-03-18] MEDS: oxyCODONE HCL IR 5 MG TAB (IMMEDIATE RELEASE) PO PRN (22:20)
[2020-03-19] MEDS: SODIUM CHLORIDE 0.9% 1000ML 1,000 ML IV SCH (01:59)
[2020-03-19] MEDS: MoRPHine SULFATE 2 MG/ML CARP IV PRN ×3 (02:01→08:36)
[2020-03-19] MEDS: oxyCODONE HCL IR 5 MG TAB (IMMEDIATE RELEASE) PO PRN ×2 (04:19→10:26)
[2020-03-19] MEDS: ACETAMINOPHEN 325 MG TAB PO PRN ×2 (04:26→10:26)
--- NOTE | 2020-03-19 08:30 | Orthopedic Progress Note ---
Date of Service March 19, 2020 Assessment & Plan (1) Patellar tendon rupture: (2) Closed fracture of posterior malleolus: (3) Fracture of proximal end of fibula: I discussed the patient with Dr. Powell. Non weight bearing on the right leg. Continue with splint and knee immobilizer. PT/OT to evaluate and see patient today Plan for d/c after evaluated by PT/OT. Wound check in our office on Sunday03/22/2020 Subjective 54 year old white male who is POD #1 of a right patellar tendon repair and right ankle ORIF. He saws that he is doing well this morning but he did have significant pain last night making it difficult for him to sleep. PT/OT have not worked with him yet. He is eager to go home and is asking about discharge. Review of Systems All systems reviewed & are unremarkable except as noted in HPI & below. Physical Exam Right leg is neurovascularly intact. He has sensation to touch intact right lower extremity. Splint is in place over the ankle and knee immobilizer is in place. Dressing is clean and dry. PG Care Time/CCT Total # of Minutes Spent Total Time Spent with Patient: Total time spent is greater than 50% in coordination of care (as documented) at patient's floor/unit and/or counseling patient: Coding Level of Care Code 34467 Post Operative Follow-Up Diagnoses Patellar tendon rupture S86.811A Encounter type: initial encounter Laterality: right Closed fracture of posterior malleolus S82.391A Encounter type: initial encounter Laterality: right Fracture of proximal end of fibula S82.831A Encounter type: initial encounter Fracture morphology: unspecified fracture morphology Fracture type: closed Laterality: right (1) Closed fracture of posterior malleolus Encounter type: initial encounter Laterality: right Qualified Code(s): S82.391A - Other fracture of lower end of right tibia, initial encounter for closed fracture (2) Fracture of proximal end of fibula Encounter type: initial encounter Fracture morphology: unspecified fracture morphology Fracture type: closed Laterality: right Qualified Code(s): S82.831A - Other fracture of upper and lower end of right fibula, initial encounter for closed fracture (3) Patellar tendon rupture Encounter type: initial encounter Laterality: right Qualified Code(s): S86.811A - Strain of other muscle(s) and tendon(s) at lower leg level, right leg, initial encounter
[2020-03-19] MEDS: ASPIRIN 325 MG ECTAB PO SCH (08:32)
[2020-03-19] MEDS: ROSUVASTATIN CALCIUM 10 MG TAB PO SCH (08:33)
[2020-03-19] MEDS: PANTOprazole 40 MG TAB PO SCH (08:33)
--- NOTE | 2020-03-25 18:04 | Discharge Summary ---
Date of Service March 25, 2020 Admission HPI (Per Admitting) . 54 y/o gentleman here with an injury to his right knee and ankle. He was taking out his garbage cans today, slipped and fell on the ice, landing on his leg sort of hyperflexed at the knee. He was unable to get up and walk. His brought him to [facility]. He denies any other injuries at this time. Admission Exam (Per Admitting) Right lower extremity: Obvious patella tendon defect. Focal tenderness at the distal lateral malleolus. Constitutional well developed and well nourished; no acute distress and not intoxicated appearing ENMT external ear and nose normal, oropharynx normal Respiratory normal respiratory effort; no respiratory distress Cardiovascular Extremities: normal capillary refill; no edema Skin no rashes, warm and dry Psychiatric A+Ox3, euthymic affect Principal Diagnosis Same as "Discharge Diagnosis" noted below under Discharge Instructions. Discharge Exam Right leg is neurovascularly intact. He has sensation to touch intact right lower extremity. Splint is in place over the ankle and knee immobilizer is in place. Dressing is clean and dry. Constitutional well developed and well nourished; no acute distress and not intoxicated appearing ENMT external ear and nose normal, oropharynx normal Respiratory normal respiratory effort; no respiratory distress Cardiovascular Extremities: normal capillary refill; no edema Skin no rashes, warm and dry Psychiatric A+Ox3, euthymic affect Discharge Data Consultations 03/17/20 10:44 Consult Orthopedic Surgery Stat 03/17/20 12:09 ED Decision to Admit Stat Procedures Performed Operation Date: 03/18/20 07:00 Actual Procedures p Right Ankle Open Reduction Internal Fixation,(Right) - Al Powell MD s Patella Tendon Repair(Right) - Al Powell MD Ordered Studies 03/17/20 11:29 MR knee RT wo con Stat 03/18/20 12:15 US - OR guided needle placemen Routine 03/18/20 13:00 FL ankle RT 2V Routine FL fluoroscopy <1hr Routine FL knee RT 1 or 2V Routine Hospital Course (1) Patellar tendon rupture: Patient was admitted preoperatively by my partner. I assumed care as I was available for surgery on March 18. He was cleared for surgery and underwent an open reduction internal fixation of his right ankle syndesmosis with screw fixation. He had an ipsilateral patella tendon rupture that was repaired as well. He recovered from surgery without complication was transferred back to the hospital floor. He was admitted overnight for observation and pain control. On postoperative day 1 he was found stable for discharge. He had a consult with PT/OT and he was stable to go home with visiting physical therapy. Encounter type: initial encounter Laterality: right Qualified Code(s): S86.811A - Strain of other muscle(s) and tendon(s) at lower leg level, right leg, initial encounter (2) Fracture of proximal end of fibula: See above. Stabilized with syndesmosis fixation. Encounter type: initial encounter Fracture morphology: unspecified fracture morphology Fracture type: closed Laterality: right Qualified Code(s): S82.831A - Other fracture of upper and lower end of right fibula, initial encounter for closed fracture (3) Closed fracture of posterior malleolus: See above. Stabilized with syndesmosis fixation Encounter type: initial encounter Laterality: right Qualified Code(s): S82.391A - Other fracture of lower end of right tibia, initial encounter for closed fracture PG Care Time/CCT Total # of Minutes Spent Total Time Spent with Patient: Total time spent is greater than 50% in coordination of care (as documented) at patient's floor/unit and/or counseling patient: Discharge Plan Discharge Items Patient Disposition: Home - Self-Care Reason For Visit: PATELLA TENDON RUPTURE, ANKLE FRACTURE Discharge Diagnosis: Right Patella Tendon Rupture, Left [place]uve Ankle Fracture Condition on Discharge: Good Activity: Per Instructions section Non-emergency contact: Surgeon Call non-emergency contact if: you have any medication questions, your pain is not controlled and your temperature is above 101 Follow-up/Referrals: Al Powell MD [Surgeon] - 04/01/20 11:20 am Geovanni Tolentino MD [Primary Care Provider] - Diet: Regular Addtl Attending Provider Instructions: SPLINT/WOUND CARE: Leave your splint in place and keep the area clean and dry. Your splint will be taken down at your postop clinic visit. Do not remove it yourself. Do not walk on your splint. You should be completely non-weightbearing. Use your crutches as instructed. Keep the Knee Immobilizer in place to protect your patellar tendon repair. You may loosen it or remove it while the leg is fully supported. Please keep the KNEE IMMOBILIZER brace in place whenever you are using crutches or moving about. If the splint becomes wet, dirty, uncomfortable, or loose, please call the [facility] ([phone]) to arrange to be evaluated in the [facility]. Please call the Orth[facility] Clinic if you have any questions or concerns. If you need to be seen after hours, please report to the Emergency Room. PAIN CONTROL: Elevation is your best friend. Elevate the affected extremity above the level of your heart. Swelling is simply fluid. Elevation will allow the fluid to run down hill, reduce swelling, and decrease pain. The affected extremity should be continuously elevated for the first 2-3 days, with the exception of bathroom, hygiene, etc. You may be prone to swelling for several weeks, or until you return to normal function with your foot/ankle. Medications: 1. Oxycodone (OxyIR) 1-2 tablet(s) orally every 4 hours for pain as needed. Use with Tylenol. Begin tapering OxyIR as soon as possible: reduce from 2 to 1 pills per dose, then spread out the doses over greater time intervals, then try to use only for therapy or for comfort while sleeping. Continue to use regular Tylenol until pain subsides. 2. Tylenol (325mg): 3 tablets every 8 hours orally. Regular dosing of Tylenol is an important part of your baseline pain control. Do not taper Tylenol until you have successfully tapered off of regular OxyIR. Do not take more than 3000mg of Tylenol per day. 3. Zofran: 1 tablet orally every 6 hours as needed for nausea related to anesthesia, pain, and narcotic medications. 4. Colace (100mg): take 1-2 tabs twice daily to avoid constipation from OxyIR or other narcotics. OVER THE COUNTER 5. ASPIRIN (325 mg): take one tablet twice a day to help reduce the risk of dangerous blood clots. WHEN TO CALL. If you develop any of the following symptoms, please contact the [facility] at [phone] or the Emergency room (after hours): Temperature greater than 100.5 taken twice, difficulty breathing, bleeding, fever and chills, increased pain unrelieved by pain meds, uncomfortable cast or splint, or any other concerns. Pending Studies at Discharge: No Stand-Alone Forms: My [facility], Smoking Cessation Medications and DC Order Prescriptions: New ondansetron HCl [Zofran] 4 mg tablet 4 mg PO DAILY PRN (Reason: nausea and vomiting) Qty: 10 RF: 0 oxycodone 5 mg tablet 5 - 10 mg PO Q4H PRN (Reason: pain) Qty: 30 RF: 0 Continued rosuvastatin [Crestor] 10 mg tablet 10 mg PO DAILY RF: 0 omeprazole 20 mg capsule,delayed release(DR/EC) 20 mg PO BID RF: 0 Discharge Orders: Discharge Order (Routine); Ordered 03/19/20 Ordered By: Al Rodriguez/Other Patient Handouts: DVT Dc Admission Data Admit Date/Time: 03/17/20 13:05 Attending Provider: Roque Goode Admit Provider: Roque Goode Primary Care Provider: Geovanni Tolentino Other Providers: Roque Goode Other Interventions: Discharge Summary Assessment (RN) Last Done: 03/19/20 13:04
== END 2020-03-19 15:01 | disposition home or self-care (01) ==
LOC: 3W 08:33 → ED 08:33 → 3W 14:32